=== PATIENT | male | born 1955 | race Caucasian/White ===

== ENCOUNTER → 2017-01-05 | Outpatient (CLI) | payer OTHER ==
[~2017-01-05] MED LIST: LISI-515 PO; PANT40TA3 PO; TRAM50TA PO
[2017-01-05 13:50] LABS: BLOOD, URINE NEG (NEG); GLUCOSE,URINE NEG (NEG); KETONE, URINE NEG (NEG); MUCUS URINE FEW /lpf (OCC); NITRITE,URINE NEG (NEG); PH, URINE 5.5 (5.0-8.5); SQUAMOUS EPITHELIAL CELL URINE <1 /hpf (0-5); URINE COLOR YELLOW (YELLW/STRAW)
[2017-01-05 13:51] LABS: COMMENT (UR) CULT NOT INDICATED; CULTURE IF INDICATED CULT NOT INDICATED
[2017-01-05 13:53] LABS: PROTHROMBIN TIME - PATIENT 10.7 SEC (9.8-11.6)
[2017-01-05 14:05] LABS: BICARBONATE 28.4 MEQ/L (21.0-32.0)
--- NOTE | 2017-01-05 14:27 | RADRPT ---
EXAM DATE/TIME: 01/05/2017 14:12 [place] COMPARISON: No previous studies available for comparison. INDICATIONS : Evaluate for pneumonia, pneumothoax, or communicable disease. Pre-op left knee surgery. MEDICAL HISTORY : None. SURGICAL HISTORY : None. ENCOUNTER: Initial ACUITY: 1 day PAIN SCORE: 0/10 LOCATION: Bilateral chest FINDINGS: PA and lateral views of the chest demonstrate the lungs to be symmetrically aerated without evidence of mass, infiltrate or effusion. The cardiomediastinal contours are unremarkable. Osseous structure s are intact. CONCLUSION: No acute disease. Long Montejo MD on January 05, 2017 at 14:25 Board Certified Radiologist. This report was verified electronically.
--- NOTE | 2017-01-06 20:22 | EKG ---
Date Performed: 01/05/2017 Time Performed: 13:27:46 PTAGE: 61 years EKG: Sinus rhythm NONSPECIFIC T-WAVE ABNORMALITY BORDERLINE ECG NO PREVIOUS TRACING DOCTOR: Christiano Guerrero Interpretating Date/Time 01/06/2017 20:20:54
== END ==
LOC: CPRE 12:58
PROVIDERS: ATTEND Orthopaedic Surgery
DX: Z01.810 Encounter for preprocedural cardiovascular examination (principal); Z01.812 Encounter for preprocedural laboratory examination; S83.242D Other tear of medial meniscus, current injury, left knee, subsequent encounter; R94.31 Abnormal electrocardiogram [ECG] [EKG]
CPT/HCPCS: 36415; 71020; 80048; 81001; 85610; 93005

== ENCOUNTER → 2017-01-15 | Day surgery (SDC) | payer OTHER ==
--- NOTE | 2017-01-05 19:28 | MH ---
cc: JOHANA LLANOS M.D. DATE OF ADMISSION 01/15/2017 ADMISSION DIAGNOSIS Medial meniscus tear of the left knee and pain of the left knee. HISTORY OF THE PRESENT ILLNESS The patient is a 61-year-old white male who has had a rather lengthy history of pain and problems referable to his left knee. In 1975 he underwent surgery for what he describes to have been a history of a patellar fracture with treatment having been completed in [place]. He describes bone fragments being removed from his knee and over the following years he continued to note soreness about the knee especially as related to exposure to cold weather. He would experience frequent falls but would remain ambulatory thereafter. Within the past several years he became progressively more symptomatic with pain for which he began alternating between aspirin and Aleve for pain management, and during the past couple of years he began to require use of a cane as an ambulatory aid. He was subsequently seen by the undersigned physician in December of 2014 and at that time x-ray studies did demonstrate trace narrowing about the medial compartment. No obvious bony abnormality of the patella was appreciated. The patient was diagnosed as having chronic synovitis with a possible internal derangement. He was treated with an intra-articular steroid injection and followed on an outpatient basis thereafter. He did note lingering symptoms about his left knee and thus recommendation was made to proceed with an MRI scan evaluation. Subsequent diagnostic testing in this regard demonstrated findings that were consistent with a strain of the medial collateral ligament as well as an oblique tear involving the posterior horn of the medial meniscus communicating with the superior articular surface. The patient at that time was wearing an elastic knee support and had been prescribed tramadol for pain management by his primary care physician. The findings of the scan were reviewed, at that time the patient reported that he would not be able to consider operative intervention given the fact that he had initiated new employment and did not feel that he would be able to take off time from work. Unfortunately he continued to experience discomfort generalized about his left knee and returned to the office requesting a repeat injection in the hope that it might afford him a more favorable response. His symptoms lingered thereafter and when he returned to the office in November of this year he reported that he was becoming progressively more symptomatic with pain that had began to interfere with all ambulatory activities. Once again emphasis was made regarding the fact that the decision to proceed with surgery would be left entirely to the patient's discretion. At that time the patient felt that given the longevity of his symptoms and his incapacitation, he was desirous of proceeding with arthroscopic surgery as had been previously discussed and in compliance with his wishes he is currently being admitted in order that the above be accomplished. PAST MEDICAL HISTORY His past medical history, hospitalizations and surgeries in addition to arthrotomy of his left knee have included: 1. Tonsillectomy. 2. Colonoscopy. The patient's medical illnesses include: 1. Hypertension for which he takes lisinopril 20 mg daily. 2. He also takes propranolol 40 mg daily for history of acid reflux. 3. Tramadol was taken on a p.r.n. basis for pain management. ALLERGIES He denies any known drug allergies. REVIEW OF SYSTEMS He does wear glasses. Denies headache, seizure or syncope. No sinus congestion or epistaxis. Diminished auditory acuity. No tinnitus. No bleeding gums. He has partial upper dentures. No cough, shortness of breath, upper respiratory infection, pneumonia or tuberculosis. No angina or heart disease. Appetite is good. Bowel movements are regular. No hepatitis, gallbladder disease, ulcers or hemorrhoids. No urinary tract infection. No kidney stones. No prostate disease. History of multiple fractures including both ankles, his fingers and rib area. No psychiatric illness. His remaining review of systems is unremarkable and noncontributory. FAMILY HISTORY The patient has been 18 years. His is 57 years of age and described as being in good health. Two sons and one daughter all indicated to be in good health. Family history is positive for diabetes, heart disease and melanoma. SOCIAL HISTORY The patient completed a tenth grade high school education. He is employed as an air conditioning installation person. He denies active use of tobacco for the past 12 years but had been at least a 38 pack-year user prior to that time. Ethanol consumption in the form of beer and occasional [employer]. PHYSICAL EXAMINATION GENERAL: Height 5 feet 10 inches, weight 240 pounds. An alert, oriented and responsive 61-year-old white male who sits quietly upon examination table with no obvious distress. HEAD, EYES, EARS, NOSE, AND THROAT: Pupils are equally round and reactive to light. Extraocular movements full. Sclerae clear. External nares clear. External auditory canals clear. Edentulous in the maxillary distribution. Semi edentulous in the mandibular distribution. Mucous membranes pink and moist. Pharynx clear. NECK: Supple. Active range of motion. No appreciable pain. Carotid pulse palpable bilaterally. Trachea midline. Thyroid without enlargement. LUNGS: Clear to auscultation and percussion. No CVA tenderness. No discomfort throughout the dorsal lumbar spine. HEART: Regular rhythm. No murmur or gallop. ABDOMEN: Soft, nontender. Bowel sounds present. RECTAL: Per primary care physician. EXTREMITIES: Left knee, no significant swelling or effusion. There is medial joint line tenderness without palpable deformity. Guarded mobility in the 90+ degree range of flexion without crepitation associated but apprehension towards the extremes of motion. No collateral ligamentous laxity. Hua test and drawer sign negative. Pivot shift and Priscila sign positive for medial compartment pain. Straight-leg raising unremarkable at 80 degrees. Antalgic gait. NEUROLOGICAL: Cranial nerves II-XII grossly intact. IMPRESSION Medial meniscus tear left knee, pain left knee. PLAN Arthroscopic surgery left knee, possible arthrotomy. The nature of the planned surgical procedure, the potential complications and risks associated, the expectations of surgery and the consent form were thoroughly reviewed with the patient prior to his admission to the hospital. Nick has indicated his full understanding regarding all of the above and given consent to proceed with treatment as outlined. Medical evaluation and clearance for surgery will be completed by his primary care physician Dr. Faustino Gómez. MD MICHELE Paige/LEONA /6:44 PM /7:05 PM
[~2017-01-15] VITALS: Ht 180.3 cm; Wt 112.8 kg
[~2017-01-15] MED LIST changes: +ACETAMINOPHEN 1000 MG/100 ML VIAL IV ONE; +DEXAMETHASONE SOD PHOS 4 MG/ML VIAL ONE; +FAMOTIDINE 20 MG/2 ML VIAL ONE; +INSULIN HUMAN REGULAR 1,000 UNITS/10 ML VIAL SQ PRN; +KETOROLAC TROMETHAMINE 60 MG/2 ML (IM) VIAL IM ONE; +LACTATED RINGER'S 1000 ML IV SCH; +LIDOCAINE HCL 2% 20 ML VIAL INFIL ONE; +LIDOCAINE HCL 2% PF SOLN 10 ML VIAL ONE; +METOCLOPRAMIDE HCL 10 MG/2 ML VIAL ONE; +METOPROLOL TARTRATE 25 MG TAB PO PRN; +MIDAZOLAM HCL 2 MG/2 ML VIAL ONE; +NALOXONE HCL 0.4 MG/ML AMP IV ONE; +ONDANSETRON HCL 4 MG/2 ML VIAL ONE; +POVIDONE IODINE 7.5% SCRUB 118 ML BOTTLE TOP SCH; +PROPOFOL 200 MG/20 ML AMP IV ONE; +SODIUM CHLORID 0.9% 500 ML IV SCH; +TRIAMCINOLONE ACETONIDE 40 MG/ML VIAL I-SYNOVIAL ONE; +TRIAMCINOLONE ACETONIDE/PF 40 MG/ML OPTH VIAL ONE; +ceFAZolin 2 GM PREMIX 50 ML IV SCH; +ePHEDrine/NS 25 MG/5 ML SYR IV ONE; +fentaNYL CITRATE 250 MCG/5 ML AMP ONE
[2017-01-15 07:27] VITALS: BP 141/76; PULSE 56; RESP 16; TEMP 98; O2SAT 98
[2017-01-15 11:45] VITALS: BP 117/68; PULSE 52; RESP 16; TEMP 97.5; O2SAT 94
--- NOTE | 2017-01-19 09:59 | MP ---
cc: JOHANA YOUNG DATE OF SURGERY 15 January 2017 PREOPERATIVE DIAGNOSIS Medial meniscus tear of the left knee and pain of the left knee. POSTOPERATIVE DIAGNOSIS Medial meniscus tear of the left knee and pain of the left knee including synovial plica left knee. PROCEDURE Partial medial meniscectomy left knee, resection of synovial plica. SURGEON Johana Young MD ANESTHESIA General by LMA FORMAT Following the induction of satisfactory general anesthesia by LMA insertion as completed per the Department of Anesthesia, examination of the left knee revealed a satisfactory range of motion with no appreciable ligamentous instability. The extremity proper was positioned in the surgical instrument maker knee barker, prepped with Betadine solution and draped into a sterile field in the routine manner. Prior to initiation of the actual procedure, the standard time-out protocol was completed. All parameters were appropriately addressed and confirmed by operating room personnel. Arthroscopic instrumentation was introduced through a stab wound utilizing cannula with sharp and blunt trocar, the inflow irrigation by way of the medial suprapatellar portal, the arthroscope through a lateral parapatellar portal and a probe through a medial parapatellar portal. Examination of the suprapatellar pouch revealed a prominent synovial plica extending across the entire superior aspect of the suprapatellar region. The patellofemoral articulation was intact without appreciable degenerative irregularity. Within the medial compartment, a degenerative tear involving the posterior horn of the medial meniscus was readily identified. There were associated chondromalacia changes involving the medial femoral condyle. The anterior cruciate ligament was identified within the intercondylar region and noted to be intact. Examination of the lateral compartment was essentially unremarkable with continuity of the articular surfaces of femoral condyle and tibial plateau and no evidence of internal derangement involving the lateral meniscus. Attention was redirected to the medial compartment utilizing a 4.0 Saber resector. A partial medial meniscectomy was accomplished, as well as chondroplasty of the medial femoral condyle. The shaver was thereafter oriented into the suprapatellar region where the previously identified synovial plica was resected without difficulty. Upon completion of same, the joint space was thoroughly lavaged and suctioned dry. An intra-articular Kenalog lidocaine injection was completed. The portal sites were reapproximated with Steri-Strips over which Xeroform gauze and a bulky dry sterile dressing placed. Anesthesia was discontinued and the patient thus transferred to a hospital stretcher and returned to the recovery room in satisfactory condition having tolerated his operative procedure well. Estimated blood loss was less than 10 cc. MD MICHELE Paige/ROSS /9:54 AM /9:54 AM
== END | disposition home or self-care (01) ==
LOC: HSDC 05:55
PROVIDERS: ATTEND Orthopaedic Surgery
DX: S83.242A Other tear of medial meniscus, current injury, left knee, initial encounter (principal); M67.52 Plica syndrome, left knee; M25.562 Pain in left knee; I10 Essential (primary) hypertension; Z79.899 Other long term (current) drug therapy
CPT/HCPCS: 01400; 29881; J0131; J0690; J1100; J1885; J2250; J2310; J2405; J2765; J3010; J3301; J7120; J3300